=== PATIENT | male | born 1960 | race Caucasian/White ===

== ENCOUNTER → 2017-03-30 | Outpatient (CLI) | payer OTHER ==
--- NOTE | 2017-03-30 10:03 | DIAGNOSTIC IMAGING REPORT ---
LEFT FOOT MIN 3 VIEWS ROUTINE CLINICAL HISTORY: Enlarging left foot mass FOOT PAIN COMPARISON: None. DISCUSSION: There are mild osteoarthritic changes present at the level the first metatarsal phalangeal joint. No fractures are visualized. No soft tissue masses are visualized on conventional radiographic imaging. There are no bony destructive lesions. IMPRESSION: 1. Mild degenerative change 2. No fractures 3. No soft tissue masses are visualized on conventional radiographic imaging Electronically signed by: Pacheco Fitzpatrick M.D. 03/30/2017 10:02 AM Dictated Date/Time: 03/30/2017 10:01 AM
== END | disposition home or self-care (01) ==
LOC: C.RADBC 09:33
PROVIDERS: ATTEND Physician Assistant Medical
DX: M79.672 Pain in left foot (principal)